=== PATIENT | female | born 1975 | race Caucasian/White ===

== ENCOUNTER → 2018-03-22 | Outpatient (REF) ==
[~2018-03-22] MED LIST: ALDACTONE 25MG25 M1 PO; CEFTIN 250250 MG/TAB PO; CELEXA 20MG20 MG/TAB PO; CEPHALEXIN500 M1 PO; DAZIDOX10 MG PO; DEMADEX 20MG20 M1 PO; FENTANYL 75MCG TD; FERROUS SU325 MG/TAB PO; GLUCOPHAGE500 MG/TAB PO; IMODIUM 2MG CAPS2 MG PO; KLOR-CON M2020 MEQ PO; LIDO2%JEL30 TOP; LIDODERM 5% PATC1 EA TP; MYLICON 8080 MG/TAB. PO; NEURONTIN400 MG/CAP PO; NIFEDIPINE 0.2% TP; NORCO 325 MG-51 TAB PO; PERCOCET 325 MG1 TA3 PO; PROTONIX 40MG T40 MG PO; ROBAXIN 75750 MG/TAB PO; TUMS500 MG PO; ULTRAM 50MG TAB50 MG PO; VITAMIN C500 MG PO
== END ==
LOC: ZLAB.WCH 16:08
DX: Z01.89 Encounter for other specified special examinations (principal)

== ENCOUNTER 2022-01-25 01:31 | Inpatient (IN) | payer BC ==
[~2022-01-25] VITALS: Ht 172.7 cm; Wt 127.0 kg
[2022-01-25] VITALS (26 sets, daily range): BP systolic 91–125; BP diastolic 30–69; PULSE 67–91; TEMP 97.6–98.9
[2022-01-25 03:35] LABS: BASO % 0.1 % (0.0-2.0); EOS # 0.1 K/mm3 (0.0-0.7); EOS % 0.6 % (0.0-4.0); GRAN # 10.1 K/mm3 (1.4-6.5); GRAN % 74.5 % (42.2-75.2); LYMPH # 2.3 K/mm3 (1.2-3.4); LYMPH % 17.4 % (20.0-51.0); MEAN CELL VOLUME 73 fl (80.0-100.0); MEAN CORPUSCULAR HGB CONC 28 g/dl (33.0-37.0); MEAN PLATELET VOLUME 10.2 fl (7.4-10.4); MONO # 0.9 K/mm3 (0.1-0.6); PLATELET COUNT 287 K/mm3 (130-400); RED BLOOD COUNT 1.87 M/mm3 (4.10-5.30); REDCELL DISTRIBUTION WIDTH-CV 17.4 % (11.5-14.5)
[2022-01-25] MEDS ORDERED: MOBIC15 MG PO (03:35)
[2022-01-25] MEDS ORDERED: EFFEXOR-XR150 MG PO (03:36)
[2022-01-25] MEDS ORDERED: ABILIFY5 MG PO (03:36)
[2022-01-25] MEDS ORDERED: PERCOCET 325 MG1 TA2 PO (03:37)
[2022-01-25 03:40] LABS: MEAN CORPUSCULAR HEMOGLOBIN 20 pg (27-31)
[2022-01-25 03:42] LABS: HEMATOCRIT 13.6 % (37.0-47.0); HEMOGLOBIN 3.8 g/dl (12.5-16.0)
[2022-01-25 12:25] LABS: BASO % 0.3 % (0.0-2.0); EOS # 0.1 K/mm3 (0.0-0.7); EOS % 0.8 % (0.0-4.0); GRAN # 7.6 K/mm3 (1.4-6.5); GRAN % 67.2 % (42.2-75.2); LYMPH # 2.6 K/mm3 (1.2-3.4); LYMPH % 22.8 % (20.0-51.0); MEAN CELL VOLUME 77 fl (80.0-100.0); MEAN CORPUSCULAR HGB CONC 31 g/dl (33.0-37.0); MEAN PLATELET VOLUME 10.6 fl (7.4-10.4); MONO % 8.5 % (1.7-9.3); PLATELET COUNT 266 K/mm3 (130-400); RED BLOOD COUNT 2.38 M/mm3 (4.10-5.30); REDCELL DISTRIBUTION WIDTH-CV 18.6 % (11.5-14.5)
[2022-01-25 12:32] LABS: HEMATOCRIT 18.4 % (37.0-47.0); HEMOGLOBIN 5.7 g/dl (12.5-16.0); MEAN CORPUSCULAR HEMOGLOBIN 24 pg (27-31)
[2022-01-25 12:43] LABS: ALBUMIN 2.7 gm/dL (3.5-5.0); BILIRUBIN,TOTAL 0.7 mg/dL (0.2-1.2); CALCIUM 7.3 mg/dL (8.4-10.2); CREATININE, serum 0.6 mg/dL (0.57-1.11); POTASSIUM 4.1 mmol/L (3.5-4.5)
[2022-01-26] VITALS (11 sets, daily range): BP systolic 96–113; BP diastolic 44–75; PULSE 68–78; TEMP 97.8–98.5
[2022-01-26 06:16] LABS: MEAN CELL VOLUME 80 fl (80.0-100.0); MEAN CORPUSCULAR HGB CONC 31 g/dl (33.0-37.0); MEAN PLATELET VOLUME 10.3 fl (7.4-10.4); PLATELET COUNT 235 K/mm3 (130-400); RED BLOOD COUNT 2.75 M/mm3 (4.10-5.30)
[2022-01-26 06:24] LABS: MEAN CORPUSCULAR HEMOGLOBIN 25 pg (27-31)
[2022-01-26 06:25] LABS: HEMOGLOBIN 6.8 g/dl (12.5-16.0)
[2022-01-26 06:29] LABS: CALCIUM 7.7 mg/dL (8.4-10.2); CREATININE, serum 0.63 mg/dL (0.57-1.11); POTASSIUM 4.3 mmol/L (3.5-4.5)
[2022-01-26 12:44] LABS: HEMATOCRIT 26.1 % (37.0-47.0); HEMOGLOBIN 8.2 g/dl (12.5-16.0)
[2022-01-27] VITALS (8 sets, daily range): BP systolic 84–129; BP diastolic 44–78; PULSE 57–79; TEMP 97.5–98.6
[2022-01-27 06:19] LABS: BASO % 0.3 % (0.0-2.0); EOS # 0.2 K/mm3 (0.0-0.7); EOS % 1.8 % (0.0-4.0); GRAN # 5.5 K/mm3 (1.4-6.5); GRAN % 62.9 % (42.2-75.2); LYMPH # 1.9 K/mm3 (1.2-3.4); LYMPH % 21.8 % (20.0-51.0); MEAN CELL VOLUME 83 fl (80.0-100.0); MEAN CORPUSCULAR HGB CONC 30 g/dl (33.0-37.0); MEAN PLATELET VOLUME 10.7 fl (7.4-10.4); MONO # 1.1 K/mm3 (0.1-0.6); MONO % 12.5 % (1.7-9.3); PLATELET COUNT 248 K/mm3 (130-400); RED BLOOD COUNT 3.06 M/mm3 (4.10-5.30); REDCELL DISTRIBUTION WIDTH-CV 19.8 % (11.5-14.5)
[2022-01-27 06:21] LABS: HEMATOCRIT 25.5 % (37.0-47.0); HEMOGLOBIN 7.6 g/dl (12.5-16.0); MEAN CORPUSCULAR HEMOGLOBIN 25 pg (27-31)
[2022-01-27 06:28] LABS: CALCIUM 7.9 mg/dL (8.4-10.2); CREATININE, serum 0.61 mg/dL (0.57-1.11); POTASSIUM 3.9 mmol/L (3.5-4.5)
[2022-01-27 19:55] LABS: HEMATOCRIT 26.7 % (37.0-47.0); HEMOGLOBIN 7.9 g/dl (12.5-16.0)
[2022-01-28 00:39] VITALS: BP 121/62; PULSE 72; TEMP 98.3
[2022-01-28 03:39] VITALS: BP 108/61; PULSE 76; TEMP 98.8
[2022-01-28 05:30] LABS: BASO % 0.2 % (0.0-2.0); EOS # 0.1 K/mm3 (0.0-0.7); EOS % 1.3 % (0.0-4.0); GRAN # 6.2 K/mm3 (1.4-6.5); GRAN % 70.9 % (42.2-75.2); LYMPH # 1.4 K/mm3 (1.2-3.4); MEAN CELL VOLUME 83 fl (80.0-100.0); MEAN CORPUSCULAR HGB CONC 30 g/dl (33.0-37.0); MEAN PLATELET VOLUME 10.4 fl (7.4-10.4); MONO % 11.3 % (1.7-9.3); PLATELET COUNT 248 K/mm3 (130-400); RED BLOOD COUNT 3.12 M/mm3 (4.10-5.30); REDCELL DISTRIBUTION WIDTH-CV 20.6 % (11.5-14.5)
[2022-01-28 05:33] LABS: HEMATOCRIT 25.9 % (37.0-47.0); HEMOGLOBIN 7.8 g/dl (12.5-16.0); MEAN CORPUSCULAR HEMOGLOBIN 25 pg (27-31)
[2022-01-28 05:41] LABS: CALCIUM 7.7 mg/dL (8.4-10.2); CREATININE, serum 0.62 mg/dL (0.57-1.11); POTASSIUM 4.1 mmol/L (3.5-4.5)
[2022-01-28 08:20] VITALS: BP 111/56; PULSE 67; TEMP 99
[2022-01-28] MEDS ORDERED: FERRO-TIME325 MG PO ×2 (08:51)
== END 2022-01-28 11:45 | disposition home or self-care (01) | DRG 378 ==
LOC: MEDICAL 01:31
PROVIDERS: Internal Medicine; Internal Medicine Gastroenterology; Physician Assistant; Student in an Organized Health Care Education/Training Program; ADMIT Internal Medicine
PROC: 0DJ08ZZ Inspection of Upper Intestinal Tract, Via Natural or Artificial Opening Endoscopic (ICD-10-PCS; principal; 2022-01-25 13:00)
PROC: 30233N1 Transfusion of Nonautologous Red Blood Cells into Peripheral Vein, Percutaneous Approach (ICD-10-PCS; 2022-01-26)
PROC: 0DJD8ZZ Inspection of Lower Intestinal Tract, Via Natural or Artificial Opening Endoscopic (ICD-10-PCS; 2022-01-27)
DX: K92.2 Gastrointestinal hemorrhage, unspecified (principal); D62 Acute posthemorrhagic anemia; T39.395A Adverse effect of other nonsteroidal anti-inflammatory drugs [NSAID], initial encounter; K21.9 Gastro-esophageal reflux disease without esophagitis; G89.29 Other chronic pain; M54.9 Dorsalgia, unspecified; F41.9 Anxiety disorder, unspecified; F32.A Depression, unspecified; Z98.84 Bariatric surgery status; Z79.1 Long term (current) use of non-steroidal anti-inflammatories (NSAID); Z79.891 Long term (current) use of opiate analgesic
CPT/HCPCS: 99223-AI; 99232-AI; 99233-AI; 99239; C9113; J1756; J2704; J7030; J7120; P9016

== ENCOUNTER 2022-03-22 11:16 | Outpatient (CLI) | payer BC ==
[~2022-03-22] VITALS: Ht 172.7 cm; Wt 142.0 kg
[2022-03-22] VITALS (9 sets, daily range): BP systolic 126–134; BP diastolic 67–79; PULSE 62–75; TEMP 98.2–98.5
[~2022-03-22 11:16] MED LIST changes: +ABILIFY5 MG PO; +EFFEXOR-XR150 MG PO; +FERRO-TIME325 MG PO; +MOBIC15 MG PO; +PERCOCET 325 MG1 TA2 PO
[2022-03-22] MEDS ORDERED: NEURONTIN300 MG/CAP PO (11:48)
== END 2022-03-22 17:33 | disposition home or self-care (01) ==
LOC: EUO 11:16
DX: Z01.89 Encounter for other specified special examinations (principal)
CPT/HCPCS: J7050; P9016